=== PATIENT | female | born 1970 ===

== ENCOUNTER 2024-03-30 08:39 | Day surgery (SDC) | payer OTHER, SELFPAY ==
--- NOTE | 2024-03-30 | PATH_ITS ---
[facility] Accession Number: [id number] No. of containers..01 Tissue . 01 Material submitted: . cecum - CECAL POLYP . 01 Diagnosis: CECAL POLYP: Tubular adenoma. STO 04/03/2024 1355 Local . 01 Electronically signed: . Jozef Oneill MD, Pathologist NPI- [id number] . 01 Gross description: . Received in formalin with two patient identifiers and cecal polyp, is a single cano soft tissue fragment, 0.9 cm in greatest dimension, submitted in A1. ([id number]) /MRV 04/03/2024 1355 Local . 01 Pathologist provided ICD-10: D12.0 . 01 CPT . 954420 Specimen Comment: A courtesy copy of this report has been sent to [phone] Performed at: [address] [id number] MD Jozef Oneill MD Phone: [phone]
[2024-03-30 09:09] VITALS: BP 135/86; PULSE 91; RESP 16; TEMP 36.3; O2SAT 94
--- NOTE | 2024-03-30 09:17 | P.HP_ITS ---
History of Present Illness History of Present Illness Date Patient Seen: 03/30/24 Time Patient Seen: 09:17 Chief complaint: Colonoscopy Narrative: Arlene is a 53-year-old woman here for a screening colonoscopy. She has never had a colonoscopy before. No known family history of colon cancer. [facility] Social History Smoking Status: Never smoker alcohol intake: current Meds Home Medications and Allergies Home Medications Medication Instructions Recorded Confirmed Type hydrochlorothiazide 12.5 mg tablet 12.5 mg PO DAILY 03/29/24 03/30/24 History Allergies Allergy/AdvReac Type Severity Reaction Status Date / Time amoxicillin Allergy Severe Swelling Verified 03/30/24 09:08 of Lip/Tongue/Throat clindamycin Allergy Severe Swelling Verified 03/30/24 09:08 of Lip/Tongue/Throat codeine Allergy Severe Hives Verified 03/30/24 09:08 Penicillins Allergy Severe Swelling Verified 03/30/24 09:08 of Lip/Tongue/Throat Exam Vital Signs (past 8 hours): - 03/30/24 09:09 Temperature 97.3 F L Pulse Rate 91 H Respiratory Rate 16 Blood Pressure 135/86 Pulse Oximetry 94 Oxygen Delivery Method Room Air Oxygen Delivery Method Room Air Const General: healthy appearing Resp Effort & Inspection: normal respiratory effort Assessment & Plan Assessment and plan (1) Colon cancer screening: Status: Acute Plan We reviewed the risks and benefits of colonoscopy for colon cancer screening and she would like to proceed. Time-Based Coding :: [TOTAL MINUTES] spent with patient and on the chart (including review of chart, obtaining history, exam, reviewing outside data, placing orders, documenting exam and treatment plan, and counseling patient) on [DATE].
--- NOTE | 2024-03-30 10:29 | PM.OP.COLON ---
Operative Date/Time/Diagnoses Date of procedure: 03/30/24 Time of procedure: 10:29 Pre-op diagnosis: Colon cancer screening Post-op diagnosis: same Procedure & Clinicians Study performed: Colonoscopy Same procedure as scheduled: Yes Surgeon: Yury Bianchi Procedure Notes Procedure in detail: Surgeon: Yury Bianchi MD Anesthesia: Ria Perez CRNA Procedure: The patient was brought to the endoscopy suite, placed in left lateral decubitus position. The patient was connected to monitoring devices. A time-out was performed. Sedation was administered. Once the patient was adequately sedated, a digital rectal exam was performed and was normal. The scope was then inserted and advanced to the cecum where the appendiceal orifice was identified and photographed. The scope was then slowly withdrawn over greater than 6 minutes. The mucosa was thoroughly inspected. There was a 4 mm polyp in the cecum removed with a cold snare. The scope was retroflexed in the rectum. No other abnormalities were found. The scope was straightened and removed. The patient was awakened and brought to recovery. Scope withdrawal time: 9 minutes Sedation time: 13 minutes EBL: 2 mL Findings: Small cecal polyp Post-procedure Disposition: PACU
[2024-03-30 10:31] VITALS: BP 107/70; PULSE 78; RESP 17; TEMP 36.2; O2SAT 96
[2024-03-30 10:35] VITALS: BP 107/71; PULSE 78; RESP 17; O2SAT 100
[2024-03-30 10:40] VITALS: BP 116/72; PULSE 75; RESP 16; O2SAT 99
[2024-03-30 10:51] VITALS: BP 130/77; PULSE 77; RESP 20; O2SAT 99
== END 2024-03-30 11:05 | disposition home or self-care (01) ==
PROVIDERS: Referring Provider Surgery; Visit Provider Surgery
PROC: 0DJD8ZZ Inspection of Lower Intestinal Tract, Via Natural or Artificial Opening Endoscopic (ICD-10-PCS; CPT 45378; principal; 2024-03-30 10:00)
DX: Z12.11 Encounter for screening for malignant neoplasm of colon (principal); D12.0 Benign neoplasm of cecum
CPT/HCPCS: 45385; J2704

== ENCOUNTER → 2024-08-03 09:28 | Outpatient (CLI) | payer OTHER, SELFPAY ==
--- NOTE | 2024-08-03 09:29 | DI.MG.S_ITS ---
MM diagnostic mammo unilat LT, US breast LT limited: 08/03/2024 BI-RADS: 3 CLINICAL: 53-year old female for left diagnostic mammogram and left diagnostic breast ultrasound. Callback from outside screening mammogram. Tyrer-Cuzick lifetime risk of 9.0%. No personal or first-degree family history of breast cancer. PRIOR EXAMS No prior examinations available. MAMMOGRAPHY TECHNIQUE: 2D and 3D (tomosynthesis) digital mammographic views obtained, with additional images as needed for full coverage. Current study was also evaluated with a Computer Aided Detection (CAD) system. ULTRASOUND TECHNIQUE Real-time thorpe scale and color doppler imaging of the area of clinical interest was performed with image documentation. TARGETED Left Breast Ultrasound: Real-time ultrasound exam was performed focused to area of clinical and/or imaging concern. DENSITY Left: C. The breasts are heterogeneously dense, which may obscure small masses. MAMMOGRAPHY FINDINGS Left (finding-1): Central, Middle depth, measuring 1.1 cm: Correlating with findings on screening mammogram there is a circumscribed, oval, high-density mass present. Left (finding-2): Central, Middle depth, measuring 0.7 cm: Correlating with findings on screening mammogram there is a circumscribed, oval mass present. ULTRASOUND FINDINGS Left (finding-1): Lower at 6:00, 1 cm from nipple, measuring 1 x 0.9 x 0.8 cm: Correlating with findings on mammogram there is an oval, circumscribed, hypoechoic mass. Doppler shows no vascularity. Left: Central, Retroareolar, measuring 0.9 x 0.7 x 0.5 cm: There is a simple anechoic cyst showing posterior acoustic enhancement. Doppler shows no vascularity. This is an incidental finding. Left (finding-2): Central, Retroareolar, measuring 0.6 x 0.7 x 0.5 cm: Correlating with findings on mammogram there is a simple anechoic cyst showing posterior acoustic enhancement. Doppler shows no vascularity. IMPRESSION: Left (Mass): Lower at 6:00, 1 cm from nipple, measuring 1 x 0.9 x 0.8 cm * Probably Benign. RECOMMENDATIONS Left: Lower at 6:00, 1 cm from nipple * Six month followup with diagnostic ultrasound. OVERALL ASSESSMENT CATEGORY BI-RADS-3: Probably Benign. ELECTRONICALLY SIGNED: Mary Grace Harris M.D. on 08/03/2024 at 12:46:47 PM PT Interpreting Station ID: [id number]
== END ==
PROVIDERS: Referring Provider Nurse Practitioner Family; Visit Provider Nurse Practitioner Family
DX: R92.8 Other abnormal and inconclusive findings on diagnostic imaging of breast (principal); N63.25 Unspecified lump in the left breast, overlapping quadrants
CPT/HCPCS: 76642; 77065; G0279

== ENCOUNTER → 2024-12-04 12:46 | Outpatient (CLI) | payer OTHER, SELFPAY ==
--- NOTE | 2024-12-04 | PATH_ITS ---
[facility] Accession Number: [id number] . 01 Material submitted: . breast - LEFT BREAST MASS . 01 Diagnosis: LEFT BREAST MASS, ULTRASOUND-GUIDED BIOPSY: Benign ruptured cyst. Background usual ductal hyperplasia. Negative for atypical hyperplasia, carcinoma in situ, and invasive carcinoma. [facility] 12/08/2024 1715 Local . 01 Comment: Sections show a disrupted benign cyst with surrounding mild inflammatory response. The background breast glandular tissue shows features of udual ductal hyperplasia. Immunohistochemistry with adequate controls is performed with the following results: . CK TONY: Highlights benign breast parenchyma, negative for invasive carcinoma. CK 5/6 and ER: Normal patterns, supports usual ductal hyperplasia. CD68: Highlights benign histiocytes. . These results support the above benign diagnosis. . 01 Electronically signed: . Laura Stokes DO, Pathologist NPI- [id number] . 01 Gross description: . Received in formalin with two identifiers and LT breast biopsy, are multiple yellow to cano soft tissue fragments admixed with hemorrhagic material aggregating TO 1.4 x 0.7 x 0.2 cm. Filtered, inked green, and submitted entirely in A1. . The specimen was removed on 12/04/2024. Time not provided. Cold ischemic time cannot be calculated. Total fixation time is approximately 20 hours. ([id number]) /MRV 12/05/2024 1605 Local . 01 Pathologist provided ICD-10: N63.0 . 01 CPT . 239784, D07136, [id number] Performed at: [address] [facility] [address], [place], [place] [id number] MD Jozef Oneill MD Phone: [phone]
--- NOTE | 2024-12-04 12:51 | DI.MG.S_ITS ---
MM diagnostic mammo [id number]: 12/04/2024. BI-RADS: None CLINICAL: 54-year old female for left diagnostic mammogram. Tyrer-Cuzick lifetime risk of 9.5%. No personal or first-degree family history of breast cancer. The patient had a prior left breast biopsy. PRIOR EXAMS Mammogram(s): 08/03/2024. Breast Ultrasound(s): 08/03/2024. MAMMOGRAPHY TECHNIQUE: 2D and 3D (tomosynthesis) digital mammographic views obtained, with additional images as needed for full coverage. Current study was also evaluated with a Computer Aided Detection (CAD) system. DENSITY Left: C. The breasts are heterogeneously dense, which may obscure small masses. MAMMOGRAPHY FINDINGS Left: Lower at 6:00, 1 cm from nipple: There is a (Cork) biopsy marker in targeted location. IMPRESSION: Left * Biopsy marker present. OVERALL ASSESSMENT CATEGORY BI-RADS None: This exam requires no BI-RADS. ELECTRONICALLY SIGNED: Marquise Aden M.D. on 12/04/2024 at 07:47:36 PM PT Interpreting Station ID: [id number]
--- NOTE | 2024-12-04 12:51 | DI.US.S_ITS ---
US bx breast perc w vac device: 12/04/2024. Rad-Path Correlation: Pending CLINICAL: 54-year old female for left procedure. Tyrer-Cuzick lifetime risk of 9.5%. No personal or first-degree family history of breast cancer. The patient had a prior left breast biopsy. PRIOR EXAMS Mammogram(s): 08/03/2024. Breast Ultrasound(s): 08/03/2024. CONSENT Risks including but not limited to bleeding and infection, benefits and alternatives were discussed with the patient. The patient agreed to the procedure and signed informed consent. Time out procedure was used. ROUTINE Left: Patient positioned in the supine or supine-oblique position, prepped and draped in the usual manner using sterile technique. TECHNIQUE Left Breast: Lower at 6:00, 2 cm from nipple, Posterior: Procedure: Ultrasound-guided vacuum-assisted biopsy of a mass with Cork- shaped marker placement. Device: 14-gauge vacuum-assisted biopsy instrument. BD EleVation(TM). Approach: Lateral. Anesthesia: Local anesthesia obtained using 1%-lidocaine. Secondary local anesthesia obtained using 2%-lidocaine with epinephrine. Skin Entry: Incision with #11 blade. Passes: 2. Specimens: 2. Targeting Confirmation: Real-time Observation and Post-Procedure Imaging. Marker Placement: Cork marker placed in target location. Post-procedure imaging: Post-procedure imaging confirms the marker to be in target location. Rad/Path Correlation: Pending receipt of pathology report. Conclusion: Ultrasound-guided Vacuum-assisted biopsy with post-procedure CC and ML mammographic views with marker placement, Left Breast: Lower at 6:00, 2 cm from nipple, Posterior PROCEDURE NOTE The mass collapsed after the first pass with the biopsy device, consistent with a cyst. COMPLICATIONS: No complications were encountered while the patient was in our department. DISPOSITION The patient left our department in good condition with aftercare instructions and urged to contact us should any problem arise. The breast was compressed to achieve hemostasis. SUMMARY Left Breast: Lower at 6:00, 2 cm from nipple, Posterior: Ultrasound- guided vacuum-assisted biopsy of a mass with Cork-shaped marker placement. PATHOLOGY Left Breast: Lower at 6:00, 2 cm from nipple, Posterior: Radiologist-Pathologist Correlation: Pending receipt of pathology report. ELECTRONICALLY SIGNED: Marquise Aden M.D. on 12/04/2024 at 07:47:04 PM PT Interpreting Station ID: [id number]
== END ==
PROVIDERS: Referring Provider Nurse Practitioner Family; Visit Provider Nurse Practitioner Family
DX: N63.25 Unspecified lump in the left breast, overlapping quadrants (principal); R92.332 Mammographic heterogeneous density, left breast; N60.02 Solitary cyst of left breast; N62 Hypertrophy of breast
CPT/HCPCS: 19083; 77065